=== PATIENT | female | born 1955 | race Caucasian/White ===

== ENCOUNTER 2016-10-20 18:36 | Emergency (ER) | payer MEDICAID, OTHER ==
[~2016-10-20] VITALS: Ht 170.2 cm; Wt 54.5 kg
[~2016-10-20 18:36] MED LIST: ALPR1TAB2 PO; ASPI-482 PO; ATEN100T PO; OMEG-33 PO; TRIA1CAP3 PO; [UNRECOGNIZED DRUG - CODE] PO
[2016-10-20 18:39] VITALS: BP 167/91
[2016-10-20] MEDS ORDERED: MORPHINE SULFATE 4 MG/ML DISP.SYRIN. IV/SQ PRN (18:45)
[2016-10-20] MEDS ORDERED: 0.9 % SODIUM CHLORIDE 10 ML DISP.SYRIN. IV PRN (18:45)
[2016-10-20 19:02] LABS: BASO # 0.1 x10^3/uL (0.0-0.2); BASO % 1 % (0-3); EOS # 0.1 x10^3/uL (0.0-0.7); EOS % 1 % (0-3); HEMATOCRIT 56.3 % (36.0-47.0); HEMOGLOBIN 19.6 g/dL (12.0-15.5); LYMPH # 2.5 x10^3/uL (1.0-4.8); LYMPH % 24 % (24-48); MEAN CORPUSCULAR HEMOGLOBIN 35 pg (25-35); MEAN CORPUSCULAR HGB CONC 35 g/dL (31-37); MEAN CORPUSCULAR VOLUME 99 fL (79-100); MONO # 0.4 x10^3/uL (0.0-1.1); MONO % 4 % (0-9); NEUT # 7.5 x10^3uL (1.8-7.7); NEUT % 71 % (31-73); PLATELET COUNT 206 x10^3/uL (140-400); RED BLOOD COUNT 5.67 x10^6/uL (3.50-5.40); RED CELL DISTRIBUTION WIDTH 14.2 % (11.5-14.5); WHITE BLOOD COUNT 10.5 x10^3/uL (4.0-11.0)
[2016-10-20 19:11] LABS: ALBUMIN/GLOBULIN RATIO 1.1 (1.0-1.7); CREATININE 0.7 mg/dL (0.6-1.0); GFR 85.4; TOTAL BILIRUBIN 0.5 mg/dL (0.2-1.0); TOTAL PROTEIN 7.7 g/dL (6.4-8.2)
--- NOTE | 2016-10-20 19:20 | PHYS DOC ---
Text Text Please see discharge instructions and precautions given. Patient will be given a small course of Lortab and follow-up with her primary care doctor tomorrow. General Chief Complaint: LOWER EXT PAIN Stated Complaint: LEFT LEG PAIN Time Seen by MD: 18:30 Source: patient, EMS Exam Limitations: no limitations Problems: History of Present Illness Initial Comments He is a pleasant 61-year-old female with history of COPD not on any oxygen therapy at home chronic neck and lower back pain who is presently under the care of her doctor for the symptoms presents with left eye pain that began 2 days ago. Described as throbbing and severe worse with movement and direct pressure with no localized direct trauma or change in skin coloration. He says the pain is continuous without numbness continuing or change in coloration of the skin. She denies any prior history of the same. She is worried that it is a clot in her leg. She has no DVT risk factors Allergies: Coded Allergies: Sulfa (Sulfonamide Antibiotics) (Verified Allergy, Intermediate, Rash, ) nitrofurantoin (Verified Allergy, Intermediate, Anaphylaxis, 12/17/14) Past Medical History Surgical History: noncontributory Review of Systems Constitutional: no symptoms reported EENTM: no symptoms reported Respiratory: no symptoms reported Cardiovascular: no symptoms reported Gastrointestinal: no symptoms reported Musculoskeletal: back paindenies joint pain, denies joint swelling, muscle pain muscle stiffnessdenies neck pain Skin: no symptoms reported Psychiatric/Neurological: no symptoms reported All Other Systems: Reviewed and Negative Physical Exam General Appearance: moderate distress HEENT: PERRL/EOMI, pale conjunctivae (R), pale conjunctivae (L) Neck: non-tender, full range of motion Cardiovascular/Respiratory: regular rate, rhythm, no M/R/G, normal peripheral pulses Gastrointestinal: non-tender, no organomegaly Hips: left hip non-tender, left hip normal inspection, left hip normal range of motion, left hip no evidence of injury, left hip bone tenderness Legs: left leg bone tenderness, left leg ecchymosis, left leg limited range of motion, left leg pain, left leg soft tissue tenderness, left leg swelling Knees: right knee non-tender, right knee normal inspection, right knee normal range of motion, right knee no evidence of injury, left knee pain, left knee soft tissue tenderness, left knee swelling Ankles: left ankle non-tender, left ankle normal inspection, left ankle normal range of motion, left ankle no evidence of injury Feet: left foot non-tender, left foot normal inspection, left foot normal range of motion, left foot no evidence of injury Neurologic/Tendon: normal sensation, normal motor functions, normal tendon functions Psychiatric: alert, oriented x 3 Skin: normal color, warm/dry Comments Refill is brisk at +2 in the left extremities entirely popliteal artery, posterior tibialis, dorsalis pedis pulses are brisk +2 patient is no sensation to light touch in proper position of the entire leg. She does have marked tenderness to palpation superior to the left medial knee the skin is not warm there is no evidence of septic joint there is no redness erythema change in skin color or rash. The pain is reproducible on exam. Orders, Labs, Meds Signed PATIENT: NELLY CLIFFORD ACCOUNT: [id number] : 1955 LOCATION: ER AGE: 61 SEX: F EXAM STATUS: PRE ER ORD. PHYSICIAN: STEPHON VAUGHN MD REASON: LLE PAIN AND LT KNEE SWELLING PROCEDURE: VENOUS LOWER EXTREMITY LEFT Patient is a pleasant 7-year-old female with a reported history of nontraumatic left leg pain who when evaluated has localized swelling and tenderness to the medial aspect of the left knee superior to it by about 2-3 cm after his continued history once her pain was under better control you know she denied having any pain medications here it was discovered that her ultrasound was read as small seroma/hematoma site of injury. She remembered that 1 she was reaching into her car she may have injured her knee. There is no site or signs of localized infection, cellulitis, abscess, doubtful arterial or venous occlusion. Patient has good cap refill good peripheral pulses. Vital signs been stable to include saturations of 92-90% on room air given her history of COPD and continued smoking despite where she normally lives. Examination: Ultrasound left lower extremity venous duplex. HISTORY History of left lower extremity pain for 2 months COMPARISON None available. TECHNIQUE Grayscale, color Doppler 2D, spectral waveform analysis the left lower extremity venous system were performed. Findings: The visualized common femoral vein, superficial femoral vein, the popliteal vein demonstrate normal compression and augmentation of flow. The visualized calf veins are patent. In the region of the anterior superior and medial knee, there is a 4.9 x 5.2 x 1.4 centimeters fluid collection identified could be hematoma or seroma (if there is recent surgery) or bursal fluid. Impression. 1. No evidence of deep venous thrombosis. 2. 5.2 centimeter fluid collection identified in the anterior superior medial knee region. Electronically signed by: Phoenix Mendez (Oct 20, 2016 19:58:14) DICTATED AND SIGNED BY: PHOENIX MENDEZ MD DATE: 10/20/161957 CC: ARMINDA KUMAR DO; STEPHON VAUGHN MD ~ Patient reviewed results of laboratory work as well as US on exam at 8:05 PM, patient happy to understand that her pain is not from a arterial venous occlusion. She was offered pain medications IM before putting her pants will be transported home with oral analgesics. She is Jesus on NSAIDs so she'll be given a short course of narcotic medications just for the acute phase of the pain treatment. She will be referred back to her primary care doctor. A sharp pain offered pain medications on several occasions but denied needing them at a time. STEPHON VAUGHN MD Oct 20, 2016 19:20
--- NOTE | 2016-10-20 19:59 | RAD ---
Examination: Ultrasound left lower extremity venous duplex. HISTORY History of left lower extremity pain for 2 months COMPARISON None available. TECHNIQUE Grayscale, color Doppler 2D, spectral waveform analysis the left lower extremity venous system were performed. Findings: The visualized common femoral vein, superficial femoral vein, the popliteal vein demonstrate normal compression and augmentation of flow. The visualized calf veins are patent. In the region of the anterior superior and medial knee, there is a 4.9 x 5.2 x 1.4 centimeters fluid collection identified could be hematoma or seroma (if there is recent surgery) or bursal fluid. Impression. 1. No evidence of deep venous thrombosis. 2. 5.2 centimeter fluid collection identified in the anterior superior medial knee region. Electronically signed by: Phoenix Owusu (Oct 20, 2016 19:58:14)
[2016-10-20] MEDS ORDERED: HYDR-79 PO (20:23)
== END 2016-10-20 20:29 | disposition home or self-care (01) ==
LOC: ER 18:36
DX: H57.12 Ocular pain, left eye (principal); M25.562 Pain in left knee; J44.9 Chronic obstructive pulmonary disease, unspecified; G89.29 Other chronic pain; Z88.2 Allergy status to sulfonamides; Z88.8 Allergy status to other drugs, medicaments and biological substances
CPT/HCPCS: 36415; 80053; 85027; 93971; 99285-25

== ENCOUNTER 2016-10-20 22:36 | Emergency (ER) | payer OTHER ==
[~2016-10-20] VITALS: Ht 170.2 cm; Wt 54.5 kg
[~2016-10-20 22:36] MED LIST changes: +HYDR-79 PO
[2016-10-20 23:05] VITALS: BP 126/98
--- NOTE | 2016-10-21 01:04 | ED.ADGEN ---
Past History Past Medical History: Fibromyalgia, Hypertension, Migraines, Other Past Surgical History: Other Alcohol Use: Occasionally Drug Use: None Adult General Chief Complaint Chief Complaint Left ankle swelling HPI HPI She is a pleasant 61-year-old female who was just seen in our emergency department 2 hours prior to arrival for contusion and hematoma to the inside of the left knee diagnosed via ultrasound. She returns today because she noticed increased local swelling and pain in the ankle. She has no new complaints or concerns actually called earlier and was advised to be reevaluated in the emergency department. Upon arrival in the [facility] she is very upset given the fact that this is a very normal progression of symptoms from her hematoma located above her knee as it drained down the tib-fib and into the ankle. She wanted no other evaluation would just like a taxicab. Review of Systems Review of Systems Constitutional: Denies fever or chills [] Eyes: Denies change in visual acuity, redness, or eye pain [] HENT: Denies nasal congestion or sore throat [] Respiratory: Denies cough or shortness of breath [] Cardiovascular: No additional information not addressed in HPI [] GI: Denies abdominal pain, nausea, vomiting, bloody stools or diarrhea [] : Denies dysuria or hematuria [] Musculoskeletal: Lower extremity ankle pain Integument: Denies rash or skin lesions [] Neurologic: Denies headache, focal weakness or sensory changes [] Endocrine: Denies polyuria or polydipsia [] Allergies Allergies Allergies Coded Allergies Type Severity Reaction Last Updated Verified Sulfa (Sulfonamide Antibiotics) Allergy Intermediate Rash 12/17/14 Yes nitrofurantoin Allergy Intermediate Anaphylaxis 12/17/14 Yes Physical Exam Physical Exam General exam patient is upset but nontoxic in appearance. Extremity exam. Ankle demonstrates mild soft tissue swelling laterally with no joint instability. +2 Peripheral posterior peripheral pulses as noted earlier mild ecchymosis noted no skin changes otherwise. Allergies exam. Normal sensation to light touch and proprioception. EKG EKG [] Radiology/Procedures Radiology/Procedures [] Impressions: Left ankle swelling secondary to hematoma Course & Med Decision Making Course & Med Decision Making Pertinent Labs and Imaging studies reviewed. (See chart for details) [Was seen and evaluated earlier in emergency department came back, patient's of hematoma located in her knee that is now drained down her tib-fib causing an ecchymosis and soft tissue swelling in her ankle she was confused and concerned and was instructed to return she did. She is now upset that she did return when all was was natural progression of the disease and injury to her knee. She does not want indirect interventions wants no medications would like to go home.] Final Impression Final Impression [Ankle hematoma, soft tissue swelling] Problems: Dragon Disclaimer Dragon Disclaimer This electronic medical record was generated, in whole or in part, using a voice recognition dictation system. STEPHON VAUGHN MD Oct 21, 2016 01:04
== END 2016-10-20 23:07 | disposition home or self-care (01) ==
LOC: ER 22:36
DX: S90.02XA Contusion of left ankle, initial encounter (principal); R22.42 Localized swelling, mass and lump, left lower limb; I10 Essential (primary) hypertension; M79.7 Fibromyalgia; G43.909 Migraine, unspecified, not intractable, without status migrainosus; Z88.2 Allergy status to sulfonamides; Z88.8 Allergy status to other drugs, medicaments and biological substances; X58.XXXA Exposure to other specified factors, initial encounter; Y93.89 Activity, other specified; Y99.8 Other external cause status; Y92.89 Other specified places as the place of occurrence of the external cause
CPT/HCPCS: 99283

== ENCOUNTER → 2016-10-31 | Outpatient (CLI) | payer OTHER ==
[2016-10-20 23:05] VITALS: BP 126/98
--- NOTE | 2016-10-31 12:17 | RAD ---
Indication: Left foot and ankle pain for 2 weeks. Time of exam 12 0 6:00 PM 3 views of the left foot were obtained. Generalized demineralization is noted. The metatarsals are intact. The phalanges are intact. The midfoot and hindfoot are unremarkable apart from a small plantar calcaneal spur. No fractures are seen. Impression: No acute bony abnormality is detected.
--- NOTE | 2016-10-31 12:19 | RAD ---
Indication: Left ankle injury and pain. Time of exam 12 0 7:00 PM 3 views of the left ankle demonstrate an obliquely oriented fracture of the distal fibula in the suprasyndesmotic location. No displacement or angulation is seen. The distal tibia is intact. Ankle mortise is well maintained. The talar dome is smooth. Lateral soft tissue swelling is noted. Impression: Obliquely oriented suprasyndesmotic left fibular fracture with overlying soft tissue swelling.
== END | disposition home or self-care (01) ==
LOC: DXRADRC 11:52
PROVIDERS: ATTEND General Practice
DX: S42.202D Unspecified fracture of upper end of left humerus, subsequent encounter for fracture with routine healing (principal); X58.XXXD Exposure to other specified factors, subsequent encounter; M25.472 Effusion, left ankle
CPT/HCPCS: 73610; 73630

== ENCOUNTER → 2016-11-10 | Outpatient (CLI) | payer OTHER ==
[2016-10-20 23:05] VITALS: BP 126/98
--- NOTE | 2016-11-10 09:10 | RAD ---
Examination: 3 views of the left ankle History: History of lateral left ankle pain, bruising, swelling Comparison: 10/31/2016 Findings: There is oblique fracture of the distal fibula with fracture line extending from the ankle joint superiorly. The ankle mortise appears intact. This is unchanged compared to prior exam Impression: Unchanged nondisplaced oblique fracture of the distal left fibula.
== END | disposition home or self-care (01) ==
LOC: DXRADRC 08:44
PROVIDERS: ATTEND General Practice
DX: S82.832A Other fracture of upper and lower end of left fibula, initial encounter for closed fracture (principal); X58.XXXA Exposure to other specified factors, initial encounter; Y93.89 Activity, other specified; Y92.89 Other specified places as the place of occurrence of the external cause; Y99.8 Other external cause status
CPT/HCPCS: 73610

== ENCOUNTER → 2016-11-17 | Outpatient (CLI) | payer OTHER ==
[2016-10-20 23:05] VITALS: BP 126/98
--- NOTE | 2016-11-17 09:59 | RAD ---
Left ankle, 3 views, 11/17/2016: History: Follow-up fracture Comparison is made to a study from 11/10/2016. There is an oblique fracture of the distal fibula which is nondisplaced. The alignment is unchanged. No significant callus is evident. No new fracture or dislocation is identified. IMPRESSION: Stable nondisplaced distal fibular fracture.
== END | disposition home or self-care (01) ==
LOC: DXRADRC 08:26
PROVIDERS: ATTEND Orthopaedic Surgery Sports Medicine
DX: S82.832D Other fracture of upper and lower end of left fibula, subsequent encounter for closed fracture with routine healing (principal); X58.XXXD Exposure to other specified factors, subsequent encounter
CPT/HCPCS: 73610